=== PATIENT | male | born 1940 | race African-American/Black ===

== ENCOUNTER 2016-08-05 05:48 | Inpatient (IN) | payer MEDICARE, OTHER ==
[2016-08-03 11:09] LABS: BASOPHILS 0.6 %; BASOPHILS ABSOLUTE 0.04 10/3/uL (0.0-0.16); EOSINOPHILS 1.6 %; HEMATOCRIT 39.3 % (40.0-51.0); HEMOGLOBIN 13.2 g/dL (13.6-17.8); IMMATURE GRANULOCYTES 0.2 %; IMMATURE GRANULOCYTES ABSOLUTE 0.01 10/3/uL (0.0-0.11); LYMPHOCYTES 36.5 %; LYMPHOCYTES ABSOLUTE 2.32 10/3/uL (0.67-4.30); MEAN CORPUS HGB CONC 33.6 g/dL (32.0-36.0); MEAN CORPUSCULAR HEMOGLOB 31.1 pg (26.0-34.0); MEAN CORPUSCULAR VOLUME 92.7 fL (80-100); MEAN PLATELET VOLUME 9.6 fL (9.2-13.0); MONOCYTES 6.3 %; NEUTROPHILS 54.8 %; NEUTROPHILS ABSOLUTE 3.48 10/3/uL (2.02-8.40); PLATELET COUNT 223 10/3/uL (150-400); RBC DISTRIBUTION WIDTH 14.8 % (12.0-16.0); RED CELL COUNT 4.24 10/6/uL (4.7-6.1); WHITE BLOOD CELLS 6.4 10/3/uL (4.5-10.5)
[2016-08-03 11:13] LABS: MANUAL DIFF NO %
[2016-08-03 11:14] LABS: INTERNATIONAL NORMAL RATI 1.1 UNITS (-); PARTIAL THROMBO TIME 29.6 SEC (22.5-37.2); PROTIME (NOT ORD) 13.7 SEC (12.0-14.5)
[2016-08-03 11:22] LABS: CALCIUM, SERUM 10.2 MG/DL (8.5-10.4); CHLORIDE, SERUM 108 MMOL/L (96-112); CO2 (CARBON DIOXIDE) 28 MMOL/L (24-34); GFR AFRICAN AMERICAN 85 ML/MIN (>=60); GFR NON AFRICAN AMERICAN 73 ML/MIN (>=60); GLUCOSE, SERUM 98 MG/DL (60-99); SGOT(AST) 24 U/L (5-40); SGPT(ALT) 29 U/L (5-65); SODIUM, SERUM 143 MMOL/L (135-148)
[2016-08-03 11:23] LABS: A/G RATIO 0.8 (0.7-1.9); ALBUMIN 3.8 G/DL (3.5-5.0); ALKALINE PHOSPHATASE 137 U/L (45-117); BUN (BLOOD UREA NITROGEN) 17 MG/DL (6-23); GLOBULIN 4.8 G/DL (2.5-4.1); TOTAL BILIRUBIN 0.4 MG/DL (0-1.2); TOTAL PROTEIN 8.6 G/DL (6.0-8.5)
--- NOTE | ~2016-08-05 | DS ---
Discharge Summary [address] [place]. [address] NAME: CHRISTOPHER IVAN JR : 42 STATUS : DIS IN PAT#: [id number] AGE: 76 ADM/REG DATE : 08/05/16 MR#: [id number] REPORT SERV DATE: 09/02/16 DICTATED BY: CHELSEA MOORE DATE: 09/01/16 REPORT STATUS : Draft TRANSCRIBED BY: VLADIMIR DATE: 09/01/16 ADMISSION DATE: 08/05/2016 DISCHARGE DATE: 08/08/2016 BRIEF HISTORY: The patient is a very pleasant 76-year-old male with a previous gastric cancer resection via total gastrectomy and esophagojejunostomy. The patient developed a retroperitoneal mass that was concerning for either primary pancreatic cancer or recurrence of the gastric cancer. Decision was made to take the patient for surgery for possible resection. 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 At the time of surgery, it is still unclear whether this was a retroperitoneal cancer or some sort of primary pancreatic cancer. The patient underwent ex- lap, lysis of adhesions, and open biopsy of this pancreatic mass. He recovered and eventually was able to go home on 08/08/2016. He will see me in clinic in 2 weeks. He is to lift nothing more than 20 pounds for 2 weeks and may get a prescription for pain medicine. He is eating regular diet as tolerated. DICTATED BY: MD DUTCH Khalil/VLADIMIR Chelsea Moore MD / [id number] CC: MD BONI Khalil RONDA LYNN
--- NOTE | ~2016-08-05 | OP ---
Record Of Operation [facility] [address] [place]. [address] NAME: CHRISTOPHER IVAN JR : 42 STATUS : ADM IN PAT#: [id number] AGE: 76 ADM/REG DATE : 08/05/16 MR#: [id number] REPORT SERV DATE: 08/07/16 DICTATED BY: CHELSEA BEDOLLA DATE: 08/06/16 REPORT STATUS : Draft TRANSCRIBED BY: MODL DATE: 08/06/16 DATE OF PROCEDURE: 08/05/2016 SERVICE: General Surgery. SURGEON: Chelsea Bedolla MD, who was present and scrubbed throughout. ASSISTANTS: 1. Damian Matt MD. 2. Chelsea Thomas MD. PREOPERATIVE DIAGNOSIS: Pancreatic adenosquamous carcinoma. POSTOPERATIVE DIAGNOSIS: Pancreatic adenosquamous carcinoma. PROCEDURES: 1. Exploratory laparotomy. 2. Lysis of adhesions. 3. Abdominal lymphadenectomy. 4. Open biopsy of pancreas (core needle and incisional). 5. Intraoperative ultrasound examination. ANESTHESIA: General endotracheal. ESTIMATED BLOOD LOSS: Approximately 100 mL. COMPLICATIONS: None. SPECIMEN: As above. BRIEF HISTORY: The patient is a very pleasant 76-year-old white male with a history of gastric cancer that was resected over a year ago. The patient was found to have a new abdominal mass on PET scan. It was unclear if this represented recurrence of the gastric cancer or some sort of primary pancreatic cancer. Biopsy showed this to be adenosquamous, which was different from the pathology from gastric cancer, so it was felt to be a new primary cancer. As such, the patient was consulted for exploration. The risks, benefits, and alternatives to exploration and possible distal pancreatectomy and splenectomy were explained to the patient in detail. The risks include, but are not limited to, bleeding, infection, reoperation, injury to surrounding structures, reactions to anesthetic medications, incisional hernias, perioperative cardiac events, perioperative thromboembolic and pulmonary events, pancreatic leak, postoperative sepsis, and possible . The patient stated a clear understanding of all the risks and requested the procedure to be done. DESCRIPTION OF PROCEDURE: After surgical consent was obtained, the patient was transported to the operative theater, and onto the operating room table in supine position. General Record Of Operation [facility] [address] [facility] [place]. [address] NAME: CHRISTOPHER IVAN : 42 STATUS : ADM IN PAT#: [id number] AGE: 76 ADM/REG DATE : 08/05/16 MR#: [id number] REPORT SERV DATE: 08/07/16 DICTATED BY: CHELSEA BEDOLLA DATE: 08/06/16 REPORT STATUS : Draft TRANSCRIBED BY: VLADIMIR DATE: 08/06/16 endotracheal anesthesia was administered without difficulty. The patient's abdomen was prepped and draped in standard sterile fashion. Preoperative antibiotics were given. A time-out was performed in order to ensure the proper patient and procedure. Incision was made through his previous midline scar and the fascia was divided using electrocautery. Abdominal cavity was entered bluntly. There were minimal adhesions to the anterior abdominal wall aside from some between the liver and the anterior abdominal wall. These were taken down, and we divided the falciform ligament. We recommended a Bookwalter device and wound protector. The liver showed no signs of metastatic disease nor did the small bowel or abdominal cavity. There were extensive adhesions from the patient's previous total gastrectomy, which we lysed accordingly. There was an enlarged lymph node that was firm in the common hepatic artery which we removed and sent for pathologic examination. There was no evidence of metastatic cancer. Once we had freed up the adhesions, we were able to identify the pancreas. The anterior aspect of the pancreas was completely normal. We could feel this is obviously an enlarged mass that seemed to be entirely behind the pancreas. At this point, we performed an ultrasound examination of the pancreas. We could clearly see this large retroperitoneal mass and defined it's borders. It was unclear whether there was any true communication between this mass and the pancreas. Usually, it seemed like that this was a retroperitoneal cancer and did not appear to be emanating from the pancreas. Nonetheless, we elevated the pancreas proximal to this, also retroperitoneal preparation for possible resection. This was preserved with a [place] drain. We lysed the adhesions to identify the anatomy of . We went ligament of Treitz and the jejunojejunostomy. The cancer in the retroperitoneum was adherent to the transverse colon, the fourth portion of the duodenum, as well as proximal jejunum, the pancreas, as well as the mesentery of the Delroy limb. In light of the locally advanced nature of the cancer, unclear diagnosis, we elected to abort any extensive resection. In order to try to get more information, we performed several core needle biopsies of the mass using an 18- gauge core needle biopsy gun. These were sent for frozen examination of squamous carcinoma. This was then consistent with the preoperative diagnosis. In order to obtain more tissue, I performed open incisional biopsy of the mass as well. Hemostasis was obtained with cautery. Again as we felt there was no way to resect this and probably reconstruct the patient, we elected to abort potential resection. We irrigated out the abdominal cavity with multiple liters of sterile saline and closed the fascia using running PDS suture. The skin was closed with a stapling device. The patient was awoke from anesthesia, having tolerated the procedure without difficulty and returned to PACU. DUTCH/VLADIMIR Chelsea Bedolla MD / [id number] CC: MD BONI Khalil RONDA LYNN
[~2016-08-05 05:48] MED LIST: *UNABLE1; ASAB PO; BENTYL10 PO; CASODEX 50 MG T50 MG PO; COREG3 PO; EZFE 200200 MG PO; FLUOROURACIL IV; LIOR10 PO; PCET PO; PLAVIX PO; PLETAL100 PO; PR12.5 PO; PR25 PO; PRILOSEC40 MG PO; PRIN10 PO; PROAIR HFA INH; PROSTATE CANCER IJ; PROTONIX PO; SINGULAIR1 PO; SUCR PO; SYMBICORT 160/41 INH INH; VENTOLIN HFA INH; ZANTAC 150 PO; ZANTAC150 MG PO; ZOCOR40 PO; ZOFRAN8 PO
[2016-08-06 06:40] LABS: BASOPHILS 0.1 %; BASOPHILS ABSOLUTE 0.01 10/3/uL (0.0-0.16); EOSINOPHILS 0.1 %; EOSINOPHILS ABSOLUTE 0.01 10/3/uL (0.0-0.53); HEMOGLOBIN 11.7 g/dL (13.6-17.8); IMMATURE GRANULOCYTES 0.2 %; IMMATURE GRANULOCYTES ABSOLUTE 0.02 10/3/uL (0.0-0.11); LYMPHOCYTES 9.6 %; MEAN CORPUS HGB CONC 33.9 g/dL (32.0-36.0); MEAN CORPUSCULAR VOLUME 91.3 fL (80-100); MEAN PLATELET VOLUME 9.9 fL (9.2-13.0); MONOCYTES ABSOLUTE 0.63 10/3/uL (0.21-1.20); PLATELET COUNT 171 10/3/uL (150-400); RBC DISTRIBUTION WIDTH 14.2 % (12.0-16.0); RED CELL COUNT 3.78 10/6/uL (4.7-6.1)
[2016-08-06 06:45] LABS: HEMATOCRIT 34.5 % (40.0-51.0); MANUAL DIFF NO %; WHITE BLOOD CELLS 10.5 10/3/uL (4.5-10.5)
[2016-08-06 06:57] LABS: A/G RATIO 0.7 (0.7-1.9); ALBUMIN 2.8 G/DL (3.5-5.0); ALKALINE PHOSPHATASE 98 U/L (45-117); BUN (BLOOD UREA NITROGEN) 11 MG/DL (6-23); CALCIUM, SERUM 8.8 MG/DL (8.5-10.4); CHLORIDE, SERUM 103 MMOL/L (96-112); CO2 (CARBON DIOXIDE) 27 MMOL/L (24-34); CREATININE 0.87 MG/DL (0.70-1.30); GFR AFRICAN AMERICAN 98 ML/MIN (>=60); GFR NON AFRICAN AMERICAN 84 ML/MIN (>=60); GLOBULIN 3.9 G/DL (2.5-4.1); GLUCOSE, SERUM 118 MG/DL (60-99); POTASSIUM, SERUM 4.1 MMOL/L (3.5-5.3); SGOT(AST) 35 U/L (5-40); SGPT(ALT) 33 U/L (5-65); SODIUM, SERUM 136 MMOL/L (135-148); TOTAL BILIRUBIN 0.4 MG/DL (0-1.2); TOTAL PROTEIN 6.7 G/DL (6.0-8.5)
[2016-08-08] MEDS ORDERED: PCET PO (09:20)
[2016-08-08] MEDS ORDERED: ZOFRAN4 PO (09:20)
== END 2016-08-08 12:43 | disposition home or self-care (01) | DRG 421 ==
LOC: SDC/OF 05:48 → PACU 11:40 → 5SO 16:55
PROVIDERS: Transplant Surgery
PROC: 0FBG0ZX Excision of Pancreas, Open Approach, Diagnostic (ICD-10-PCS; 2016-08-05)
PROC: 0DNV0ZZ Release Mesentery, Open Approach (ICD-10-PCS; 2016-08-05)
PROC: 07BB0ZZ Excision of Mesenteric Lymphatic, Open Approach (ICD-10-PCS; 2016-08-05)
PROC: 00HU33Z Insertion of Infusion Device into Spinal Canal, Percutaneous Approach (ICD-10-PCS; 2016-08-05)
PROC: 07TP0ZZ Resection of Spleen, Open Approach (ICD-10-PCS; principal; 2016-08-05 07:45)
DX: C25.9 Malignant neoplasm of pancreas, unspecified (principal); N25.81 Secondary hyperparathyroidism of renal origin; C79.9 Secondary malignant neoplasm of unspecified site; C78.6 Secondary malignant neoplasm of retroperitoneum and peritoneum; C78.4 Secondary malignant neoplasm of small intestine; I42.9 Cardiomyopathy, unspecified; C78.5 Secondary malignant neoplasm of large intestine and rectum; F17.210 Nicotine dependence, cigarettes, uncomplicated; I25.10 Atherosclerotic heart disease of native coronary artery without angina pectoris; I73.9 Peripheral vascular disease, unspecified; Z95.1 Presence of aortocoronary bypass graft; Z95.828 Presence of other vascular implants and grafts; Z79.899 Other long term (current) drug therapy; Z79.82 Long term (current) use of aspirin; Z90.3 Acquired absence of stomach [part of]; I71.4 Abdominal aortic aneurysm, without rupture; M19.90 Unspecified osteoarthritis, unspecified site; E78.5 Hyperlipidemia, unspecified; J43.9 Emphysema, unspecified; Z95.5 Presence of coronary angioplasty implant and graft; Z98.890 Other specified postprocedural states
CPT/HCPCS: 36415; 71010; 80053; 82962; 85025; 85610; 85730; 86850; 86900; 86901; 86920; 88305; 88307; 88331; 93005; 94640; 97161-GP; A9270-GY; C1751; C1769; G8978-CK-GP; G8979-CK-GP; G8980-CJ-GP; J0690; J2250; J2370; J2405; J2550; J2710; J3010; P9045